=== PATIENT | male | born 1970 | race Caucasian/White ===

== ENCOUNTER 2019-10-04 08:55 | Emergency (ER) | payer OTHER, SELFPAY ==
[2019-10-04 08:57] VITALS: BP 165/107; PULSE 72; RESP 15; TEMP 36.6; O2SAT 97; BMI 31.1
--- NOTE | 2019-10-04 09:12 | CT_ITS ---
STUDY: CT ABDOMEN AND PELVIS WITHOUT CONTRAST REASON FOR EXAM: Male, 49 years old. RIGHT FLANK PAIN RADIATION DOSAGE (If Supplied By Facility): CTDIvol = ( 13.92 ) mGy, DLP = ( 810.51 ) mGycm TECHNIQUE: Transaxial images were obtained from the dome of the diaphragm to the symphysis pubis without oral contrast, and without intravenous contrast. Sagittal and coronal images were reconstructed. Individualized dose optimization techniques were used for this CT. COMPARISON: None. FINDINGS: The visualized lung bases are unremarkable. The visualized portions of the heart are within normal limits. Normal liver. Normal gallbladder and extrahepatic biliary system. Normal spleen. Normal pancreas. Normal bilateral adrenal glands. There is evidence of right perinephric and right periureteric stranding. Mild degree of right hydronephrosis and right hydroureter due to a 4.7 mm x 3 mm calculus in the distal one third of the right ureter. Normal left kidney. There is a small hiatal hernia. Normal small intestine. Normal colon. The appendix is visualized and appears normal. Normal abdominal aorta. Normal inferior vena cava. Normal retroperitoneum. Normal urinary bladder. There are prostatic calcifications. There is a moderate sized right-sided inguinal hernia containing adipose tissue. Disc space narrowing and disc degeneration at the L5-S1 level. CT/Abdomen/Pelvis without Cont IMPRESSION: 4.7 mm x 3 mm calculus in the distal one third of the right ureter causing right hydronephrosis and hydroureter with right perinephric stranding. Electronically Signed: Daniel Irwin, at 10:07 EDT , Service support ,
--- NOTE | 2019-10-04 09:13 | ED.DCSUM_ITS ---
History of Present Illness Chief Complaint: Flank Pain Informant: Patient, Significant Other Onset: Today Narrative: 9-year-old male with no reported medical problems presents today with right flank pain. Onset of this was this morning. He described it as sharp/aching. His states he looked clammy and he has been nauseous. They went to the urgent care after taking 3 ibuprofen. His pain is down from an 8 to a 5. Urgent care sent him to the ED for evaluation. Patient has not had fever, chills. He admits to nausea without vomiting. No urinary complaints. No diarrhea or constipation. Past Medical History - Allergies and Home Meds Allergies/Adverse Reactions: Allergies No Known Allergies Allergy (Verified 10/04/19 08:59) Past Medical History: None Lives: Spouse/ Significant Other Smoking Status: Never smoker Alcohol: None Drugs: None Review of Systems General: Denies: Chills, Fever, Sweats Eyes: Denies: Visual changes - bilaterally, Diplopia ENT: Denies: Rhinorrhea, Sore throat Cardiovascular: Denies: Chest pain, Palpitations Respiratory: Denies: Dyspnea, Cough, Dyspnea on exertion Gastrointestinal: Denies: Abdominal pain, Nausea, Vomiting, Diarrhea, Melena, Hematochezia Genitourinary: Denies: Dysuria, Hematuria, Frequency Musculoskeletal: Reports: Back pain - Flank pain. Denies: Extremity Pain Skin: Denies: Rash, Wounds Neurological: Denies: Headache, Weakness, Numbness Physical Exam Vital Signs/Narrative: Vital Signs Temp Pulse Resp BP Pulse Ox 10/04/19 08:57 97.9 F 72 15 165/107 H 97 Inital Vital Signs reviewed: Yes General: Well nourished, Well developed, No Acute Distress Head: Normocephalic, Atraumatic Eyes: Perrl, EOMI Neck: Supple, Nontender Cardiovascular: Regular rate, Regular rhythm Respiratory: No distress, CTA bilaterally Abdomen: Soft, Nontender Back: Nontender, CVA tenderness - Right. Negative for: Spinal tenderness Extremities: Nontender, No edema Skin: Normal color, No rash Neurological: Alert, Oriented x3, Normal Strength Psychological: Normal affect, Normal Mood Diagnostic/Tx/Re-eval Clinical Impression(s) from Imaging Studies Abdomen/Pelvis CT 10/04/19 09:12 IMPRESSION: 4.7 mm x 3 mm calculus in the distal one third of the right ureter causing right hydronephrosis and hydroureter with right perinephric stranding. Electronically Signed: Daniel Irwin, at 10:07 EDT , Service support , Laboratory Data 10/04/19 10/04/19 10/04/19 09:10 09:10 09:15 WBC 11.6 H RBC 5.36 Hgb 15.9 Hct 46.0 MCV 85.8 MCH 29.7 MCHC 34.6 RDW Std Deviation 38.1 RDW Coeff of Martina 12.4 Plt Count 267 MPV 9.9 Immature Gran % (Auto) 0.800 Neut % (Auto) 82.9 H Lymph % (Auto) 10.4 L [place] % (Auto) 5.5 Eos % (Auto) 0.1 Baso % (Auto) 0.3 Absolute Neuts (auto) 9.6 H Absolute Lymphs (auto) 1.21 Nucleated RBC % 0 Sodium 134 L Potassium 4.0 Chloride 101 Carbon Dioxide 31.0 Anion Gap 2 L BUN 22 H Creatinine 1.31 H Estim Creat Clear Calc 76.51 Est GFR (MDRD) Af Amer 75 Est GFR (MDRD) Non-Af 62 BUN/Creatinine Ratio 16.8 Glucose 149 H Calcium 9.6 Urine Color Ricarda Urine Clarity Cloudy Urine pH 6.0 Ur Specific [place] 1.025 Urine Protein 30 H Urine Glucose (UA) Normal Urine Ketones 5 H Urine Occult Blood 250 H Urine Nitrite Negative Urine Bilirubin 1 H Urine Urobilinogen 1 H Ur Leukocyte Esterase 100 H Urine RBC > 100 SEEN Urine WBC 0-5 SEEN Ur Squamous Epith Cells 0 SEEN Calcium Oxalate Crystal 1+ Urine Bacteria 3+ Fine Granular Casts 0-5 SEEN Coarse Granular Casts 5-10 SEEN Urine Mucus 3+ - Medical Decision Making She presenting with signs and symptoms of renal colic on the right. Urinalysis does show blood as well as likely infection. He was sent for culture. Patient was given a dose of Keflex here. We placed on this for home. His stone is less than 5 mm and I think will likely pass. He be sent home with prescription for Percocet, Zofran, Flomax. He was given follow-up with urology. He is given return precautions. Patient stable for discharge at this time. Impression: 1. Urinary tract infection 2. Right ureteral stone ED Disposition - Plan for ED Patient: Disposition: Home or Assisted Living Instructions: ED Renal Stone w Colic, ED UTI Pyelonephritis Male Prescriptions: Tamsulosin HCl [Flomax] 0.4 mg PO DAILY #7 cap Transmission Status: Pending to [facility] Cephalexin [Keflex] 500 mg PO Q6 #40 cap Transmission Status: Pending to [facility] Oxycodone HCl/Acetaminophen [Percocet 5/325] 1 tab PO Q6H PRN PRN 3 Days #12 tab PRN Reason: Pain Prescription Printed Ondansetron [Zofran Odt] 4 mg PO Q8H PRN PRN #10 tab PRN Reason: Nausea Transmission Status: [facility] to [facility] Referrals: Loraine Duke DO [Primary Care Provider] - Mann Colindres MD [STAFF PHYSICIAN] -
[2019-10-04] MEDS: Ketorolac 30 MG/ML Syringe IV (09:23)
[2019-10-04] MEDS: 0.9% Normal Saline 1,000 ML 999 ML IV (09:23)
[2019-10-04 09:24] LABS: Squamous Epithelial Cells - UA 0 SEEN /hpf (0-5)
[2019-10-04] MEDS: Ondansetron 4 MG/2 ML Vial IV (09:24)
[2019-10-04 09:25] LABS: Color, Urine Amber (Yellow); Glucose, Dipstick Normal (Normal); Ketone-Dipstick 5 mg/dl (Negative); Leukocyte Esterase-Dipstick 100 /ul (Negative); Nitrite-Dipstick Negative (Negative); Occult Blood-Urine 250 /ul (Negative); Protein-Dipstick 30 mg/dl (Negative); Specific Gravity, Urine 1.025 (1.002-1.030); Urine Clarity Cloudy (Clear); Urine Urobilinogen 1 mg/dl (Normal)
[2019-10-04 09:27] LABS: Urine Bilirubin Dipstick 1 mg/dL (Negative)
[2019-10-04 09:28] LABS: Absolute Lymphocyte Count 1.21 X10^3/uL (0.83-4.51); Absolute Neutrophil Count 9.6 X10^3/uL (2.0-7.7); Basophil# 0.04 X10^3/uL; Basophil% 0.3 % (0-1); Eosinophil# 0.01 X10^3/uL; Eosinophils% 0.1 % (0-5); Hemoglobin 15.9 g/dL (13.0-16.5); Lymphocyte # 1.21 X10^3/ul (4.0); Lymphocyte % 10.4 % (19-41); Mean Corp Hgb Conc 34.6 g/dL (32-36); Mean Corpuscular Hgb 29.7 pg (27.0-32.0); Mean Corpuscular Volume 85.8 fL (80-94); Mean Platelet Vol. 9.9 fl (6.2-12.0); Monocyte# 0.64 X10^3/uL; Monocyte% 5.5 % (0-10); NRBC Flagged by Analyzer 0 % (0-5); Neutrophil # 9.59 X10^3/uL (2.7-7.7); Neutrophil % 82.9 % (47-70); Platelet Count 267 K/mm3 (150-450); RBC Distribution Width CV 12.4 % (11.6-14.6); RBC Distribution Width SD 38.1 fl (35.1-43.9); Red Blood Count 5.36 M/mm3 (4.6-6.2); White Blood Count 11.6 K/mm3 (4.4-11.0)
[2019-10-04 09:37] LABS: Anion Gap 2 (5-15); BUN 22 mg/dL (7-18); BUN/Creat Ratio 16.8 RATIO (10-20); Calcium,Total 9.6 mg/dL (8.5-10.1); Chloride 101 mmol/L (98-107); Creatinine, Serum 1.31 mg/dL (0.70-1.30); EST Glomerular Filtration Rate 62 mL/min (>60); Est Glom Filt Rate - Afr Amer 75 mL/min (>60); Estimated Creatinine Clearance 76.51 ml/min; Glucose 149 mg/dL (74-106); Sodium Level 134 mmol/L (136-145)
[2019-10-04 09:40] LABS: Calcium Oxalate Crystals Ur 1+ /hpf (<or=2+); Red Blood Cells-Urine > 100 SEEN /hpf (0-5)
[2019-10-04 09:41] LABS: Fine Granular Cast- Urine 0-5 SEEN /lpf (0-5); Mucous, Urine 3+ /hpf (<or=2+)
[2019-10-04 09:42] LABS: Coarse Granular Cast 5-10 SEEN /lpf (0-5 /lpf)
[2019-10-04 09:44] LABS: White Blood Cells 0-5 SEEN /hpf (0-5)
[2019-10-04 09:45] LABS: Bacteria 3+ /hpf (None Seen)
[2019-10-04 10:44] VITALS: BP 158/87; PULSE 74; RESP 18; O2SAT 99
--- NOTE | 2019-10-04 19:12 | ED.RN ---
chart opened to check discharge status for [facility]
== END 2019-10-04 10:45 | disposition home or self-care (01) ==
PROVIDERS: Emergency Provider Student in an Organized Health Care Education/Training Program; PCP Family Medicine
DX: N13.6 Pyonephrosis (principal)
CPT/HCPCS: 74176; 80048; 81001; 85025; 87086; 87088; 96361; 96374; 96375; 99283; J7030; A4216; J2405

== ENCOUNTER → 2019-11-07 16:05 | Outpatient (CLI) | payer OTHER, SELFPAY ==
--- NOTE | 2019-11-07 16:08 | RAD_ITS ---
STUDY: X-RAY - ABDOMEN/PELVIS REASON FOR EXAM: Male, 49 years old. EVAL FOR DISTAL RIGHT URETERAL STONE TECHNIQUE: Frontal view COMPARISON: None. FINDINGS: Normal visualized lung bases. There is an unremarkable bowel gas pattern. There is no demonstrated free abdominal air. The visualized liver, spleen and kidneys are grossly normal in size and morphology. No ureteral stone is identified. Normal soft tissue structures. Normal visualized osseous structures. RAD/Abdomen Single View IMPRESSION: Normal x-ray examination of the abdomen and pelvis. Electronically Signed: Robby Avendaño DO at 23:08 EDT Tel [phone], Service support ,
== END ==
PROVIDERS: PCP Family Medicine; Referring Provider Nurse Practitioner Adult Health; Visit Provider Nurse Practitioner Adult Health
DX: N20.1 Calculus of ureter (principal)
CPT/HCPCS: 74018